=== PATIENT | male | born 1980 | race Caucasian/White ===

== ENCOUNTER 2017-08-21 21:49 | Emergency (ER) | payer OTHER ==
[~2017-08-21] VITALS: Ht 180.3 cm; Wt 97.5 kg
[~2017-08-21 21:49] MED LIST: SIMVASTATIN10 M1 PO; WELLBUTRIN100 MG PO; XANAX0.25 MG PO
[2017-08-21 21:52] VITALS: Ht 180.3 cm; Wt 97.5 kg
[2017-08-21 22:35] VITALS: BP 148/97
== END 2017-08-21 22:35 | disposition home or self-care (01) ==
LOC: ED 21:49
DX: M54.6 Pain in thoracic spine (principal)